=== PATIENT | female | born 1990 | race Caucasian/White ===

== ENCOUNTER 2019-05-11 10:17 | Emergency (ER) | payer MEDICAID, OTHER ==
[~2019-05-11] VITALS: Ht 157.4 cm; Wt 71.3 kg
--- NOTE | 2019-05-11 10:49 | ED Lower Extremity ---
General Chief Complaint: Lower Extremity Stated Complaint: LT BIG TOE INJ Nursing Triage Note: Patient c/o pain, swelling, and bruising in her left great toe. States she was jumping off the top bunk approximately 6-7 feet off the ground missed her footing on the bottom bunk landing and bending her left great toe underneath her foot. States that it was a little sore yesterday but the pain, swelling, and bruising has increased today. Reports taking ibuprofen today and states it hasn't helped with the pain. Nursing Sepsis Screen: No Definite Risk Source: family Exam Limitations: no limitations History of Present Illness Date Seen by Provider: May 11, 2019 Time Seen by Provider: 10:45 Initial Comments The patient is a 29-year-old white female who presents with complaints of pain in her left great toe. She reports that she was in snf yesterday and when she attempted to get down off the top bunk she dropped to the floor and apparently landed on the tip of her left great toe bending it underneath. It hurts somewhat yesterday but much more so today. She reports that it hurts a great deal when she walks. She has no shoes other than flip-flops. Onset: yesterday Pain/Injury Location: left 1st toe Method of Injury: direct blow Allergies and Home Medications Patient Home Medication List Home Medication List Reviewed: Yes Review of Systems Constitutional: see HPI EENTM: no symptoms reported Respiratory: no symptoms reported Cardiovascular: no symptoms reported Gastrointestinal: no symptoms reported Genitourinary: no symptoms reported Musculoskeletal: see HPI Skin: other (chigger bites) Psychiatric/Neurological: No Symptoms Reported Past Ezmlxkm-Bdpfed-Jwwvcg Hx Patient Social History Recent Foreign Travel: No Contact w/Someone Who Travel: No Recent Infectious Disease Expo: No Physical Abuse: No Sexual Abuse: No Mistreated: No Fear: No Past Medical History : No Last Menstrual Period: May 04, 2019 Physical Exam Vital Signs Vital Signs - First Documented 05/11/19 10:27 Temp 36.9 Pulse 90 Resp 16 B/P (MAP) 132/97 (109) Pulse Ox 97 O2 Delivery Room Air Capillary Refill : Less Than 3 Seconds Height, Weight, BMI Height: '" Weight: lbs. oz. kg; 28.00 BMI Method: General Appearance: WD/WN HEENT: normal ENT inspection Neck: full range of motion Cardiovascular: normal peripheral pulses Respiratory: chest non-tender Legs: bilateral leg other (multiple punctate lesions consistent with tick bites over the anterior surface of both shins.) Feet: left foot other Progress/Results/Core Measures Results/Orders My Orders Orders - BUDDY CANALES MD Foot 3 View Left (05/11/19 10:43) Vital Signs/I&O 05/11/19 10:27 Temp 36.9 Pulse 90 Resp 16 B/P (MAP) 132/97 (109) Pulse Ox 97 O2 Delivery Room Air Blood Pressure Mean: 109 Departure Communication (Admissions) 1104 x-rays interpreted by me show no fracture or dislocation. 1120 radiology report confirms Impression Primary Impression: Sprain of metatarsophalangeal joint of left great toe Disposition: HOME, SELF-CARE Condition: Stable/Unchanged Departure-Patient Inst. Decision time for Depature: 11:22 Referrals: NO,LOCAL PHYSICIAN (PCP/Family) Primary Care Physician Add. Discharge Instructions: All discharge instructions reviewed with patient and/or family. Voiced understanding. Elevate foot and ice great toe when possible today. May take ibuprofen 600-800 mg 3 or 4 times daily. Use the podiatric boot for protection BUDDY CANALES MD May 11, 2019 10:49
--- NOTE | 2019-05-11 11:07 | Diagnostic Imaging Report ---
Left foot at 10:31. Indication: Injury to great toe. 3 views were obtained. There are no prior studies available for comparison. There is no fracture, dislocation or acute bony abnormality evident. The Lisfranc joint is well maintained. The soft tissues are unremarkable. There is no sign of a radiopaque foreign body. Impression: There is no evidence for an acute bony abnormality. Dictated by: Dictated on workstation # [id number]
[2019-05-11 11:33] VITALS: BP 132/97
== END 2019-05-11 11:31 | disposition home or self-care (01) ==
LOC: ER FS 10:20
DX: S93.522A Sprain of metatarsophalangeal joint of left great toe, initial encounter (principal); W17.89XA Other fall from one level to another, initial encounter; Y93.39 Activity, other involving climbing, rappelling and jumping off; Y92.149 Unspecified place in prison as the place of occurrence of the external cause
CPT/HCPCS: 73630

== ENCOUNTER 2019-06-27 19:04 | Emergency (ER) | payer MEDICAID ==
[~2019-06-27] VITALS: Ht 161 cm; Wt 71.4 kg
--- NOTE | 2019-06-27 19:22 | ED Abdominal Pain ---
General Stated Complaint: LOW ABD CRAMPING Source of Information: Patient Exam Limitations: No Limitations History of Present Illness Date Seen by Provider: Jun 27, 2019 Time Seen by Provider: 19:02 Initial Comments The patient is a pleasant 29-year-old female who presents for mild lower abdominal cramping as well as a positive test last night. 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 She states that she took a urine. Test at home which appeared to be positive and wanted to come in to have a confirmed. She denies fevers or chills, nausea or vomiting, rectal bleeding or pain, diarrhea, chest pain or shortness of breath, dysuria, hematuria, pelvic pain/bleeding/discharge, back or flank pain. She is smiling and appears comfortable. She believes that her last period was on May 22. She denies any abdominal surgical history. She is alert and oriented 4, calm, and appears to be in no distress. Timing/Duration: 24 Hours Severity/Quality: Mild Location: Suprapubic Radiation: No Radiation Activities at Onset: None Associated Symptoms: Denies Symptoms Allergies and Home Medications Patient Home Medication List Home Medication List Reviewed: Yes Review of Systems Review of Systems Constitutional: no symptoms reported EENTM: No Symptoms Reported Respiratory: No Symptoms Reported Cardiovascular: No Symptoms Reported Gastrointestinal: Abdominal Pain (mild lower abdominal cramping) Genitourinary: No Symptoms Reported Musculoskeletal: no symptoms reported Skin: no symptoms reported Psychiatric/Neurological: No Symptoms Reported Endocrine: No Symptoms Reported Hematologic/Lymphatic: No Symptoms Reported All Other Systems Reviewed Negative Unless Noted: Yes Past Gtjyblx-Lxuiuj-Quwzga Hx Past Med/Social Hx: Reviewed Nursing Past Med/Soc Hx Patient Social History 2nd Hand Smoke Exposure: No Recent Foreign Travel: No Contact w/Someone Who Travel: No Recent Hopitalizations: No Seasonal Allergies Seasonal Allergies: No Past Medical History Surgeries: Yes (Cleft Palate repair, lumpectomy left breast, tympanostomy) Ear Surgery Respiratory: No Cardiac: No Neurological: No Genitourinary: No Gastrointestinal: No Musculoskeletal: No Endocrine: No HEENT: No Cancer: No Psychosocial: No Integumentary: No Blood Disorders: No Physical Exam Vital Signs Vital Signs - First Documented 06/27/19 19:27 Temp 37.0 Pulse 89 Resp 19 B/P (MAP) 142/87 (105) Pulse Ox 99 Capillary Refill : Height/Weight/BMI Height: '" Weight: lbs. oz. kg; 28.00 BMI Method: General Appearance: WD/WN, no apparent distress HEENT: PERRL/EOMI, pharynx normal Neck: non-tender, full range of motion, supple Respiratory: chest non-tender, lungs clear, normal breath sounds, no respiratory distress, no accessory muscle use Cardiovascular: regular rate, rhythm, no edema, no murmur Gastrointestinal: normal bowel sounds, non tender, soft, no organomegaly, no pulsatile mass, other (benign abdominal examination with no focal tenderness, soft, no rigidity, no guarding) Extremities: normal range of motion, non-tender, no pedal edema Back: normal inspection, no CVA tenderness Neurologic/Psychiatric: gastrointestinal technician II-XII nml as tested, no motor/sensory deficits, alert, normal mood/affect Skin: normal color, warm/dry Progress/Results/Core Measures Results/Orders Lab Results Laboratory Tests Test 06/27/19 19:05 06/27/19 19:20 Range/Units Urine Color YELLOW Urine Clarity CLEAR Urine pH 70 5-9 Urine Specific [place] 1.020 1.016-1.022 Urine Protein NEGATIVE NEGATIVE Urine Glucose (UA) NEGATIVE NEGATIVE Urine Ketones NEGATIVE NEGATIVE Urine Nitrite NEGATIVE NEGATIVE Urine Bilirubin NEGATIVE NEGATIVE Urine Urobilinogen 0.2 NORMAL MG/DL Urine Leukocyte Esterase 1+ H NEGATIVE Urine RBC (Auto) 1+ H NEGATIVE Urine RBC 5-10 H /HPF Urine WBC 10-25 H /HPF Urine Squamous Epithelial Cells 10-25 H /HPF Urine Crystals NONE /LPF Urine Bacteria FEW H /HPF Urine Casts NONE /LPF Urine Mucus NEGATIVE /LPF Urine Culture Indicated YES White Blood Count 11.5 H 4.3-11.0 10^3/uL Red Blood Count 4.58 4.35-5.85 10^6/uL Hemoglobin 13.6 11.5-16.0 G/DL Hematocrit 40 35-52 % Mean Corpuscular Volume 87 80-99 FL Mean Corpuscular Hemoglobin 30 25-34 PG Mean Corpuscular Hemoglobin Concent 34 32-36 G/DL Red Cell Distribution Width 13.3 10.0-14.5 % Platelet Count 419 H 130-400 10^3/uL Mean Platelet Volume 8.9 7.4-10.4 FL Neutrophils (%) (Auto) 61 42-75 % Lymphocytes (%) (Auto) 30 12-44 % Monocytes (%) (Auto) 7 0-12 % Eosinophils (%) (Auto) 1 0-10 % Basophils (%) (Auto) 0 0-10 % Neutrophils # (Auto) 7.0 1.8-7.8 X 10^3 Lymphocytes # (Auto) 3.5 1.0-4.0 X 10^3 Monocytes # (Auto) 0.8 0.0-1.0 X 10^3 Eosinophils # (Auto) 0.1 0.0-0.3 10^3/uL Basophils # (Auto) 0.0 0.0-0.1 10^3/uL Sodium Level 139 135-145 MMOL/L Potassium Level 4.0 3.6-5.0 MMOL/L Chloride Level 105 98-107 MMOL/L Carbon Dioxide Level 20 L 21-32 MMOL/L Anion Gap 14 5-14 MMOL/L Blood Urea Nitrogen 10 7-18 MG/DL Creatinine 0.77 0.60-1.30 MG/DL Estimat Glomerular Filtration Rate > 60 BUN/Creatinine Ratio 13 Glucose Level 97 70-105 MG/DL Calcium Level 9.3 8.5-10.1 MG/DL Corrected Calcium 8.5-10.1 MG/DL Total Bilirubin 0.2 0.1-1.0 MG/DL Aspartate Amino Transf (AST/SGOT) 14 5-34 U/L Alanine Aminotransferase (ALT/SGPT) 11 0-55 U/L Alkaline Phosphatase 69 40-136 U/L Total Protein 7.5 6.4-8.2 GM/DL Albumin 4.6 H 3.2-4.5 GM/DL Lipase 27 8-78 U/L Human Chorionic Gonadotropin, Quant 1829 H <5 MIU/ML My Orders Orders - DARIELA MARINO DO Comprehensive Metabolic Panel (06/27/19 19:06) Lipase (06/27/19 19:06) Ua Culture If Indicated (06/27/19 19:06) Ed Iv/Invasive Line Start (06/27/19 19:06) Cbc With Automated Diff (06/27/19 19:06) Urine Bedside (06/27/19 19:06) Hcg,Quantitative (06/27/19 19:13) Urine Culture (06/27/19 19:05) Vital Signs/I&O 06/27/19 19:27 Temp 37.0 Pulse 89 Resp 19 B/P (MAP) 142/87 (105) Pulse Ox 99 Progress Progress Note : Progress Note @2004 - Patient and significant other updated on patient updated on lab results. Patient declined pelvic examination at this time. She appears comfortable and is smiling and stating that she feels much better at this time. Ultrasound is not available however the likelihood of the patient having a serious ectopic at this time is very unlikely. I discussed the case with Dr. Alfonso, CHANNEL ACCOUNT MANAGER, who is happy to follow up with the patient tomorrow. The patient has a urinalysis which appears contaminated but also appears consistent with a UTI so she will go home with a prescription for Macrobid. Patient expresses verbal understanding and agreement with the plan. She is stable for discharge at this time. Advised return to the Emergency Department immediately for vaginal bleeding, worsening pain, new or worsening symptoms. Departure Impression Primary Impression: Cramping affecting , antepartum Additional Impression: Acute UTI Disposition: HOME, SELF-CARE Condition: Stable Departure-Patient Inst. Decision time for Depature: 20:09 Referrals: MELISSA SINHA DO Patient Instructions: Activity During , Ectopic (DC), Urinary Tract Infection, Adult (DC) Add. Discharge Instructions: It is very important that you follow-up with Dr. Sinha in the next 1-2 days as ectopic was not entirely ruled out. Return to the emergency department immediately for new or worsening symptoms such as worsening pain, vaginal bleeding, or other. Drink plenty of fluids. Do not drink alcohol, use illicit substances, or smoke cigarettes. Scripts Nitrofurantoin Monohyd/M-Cryst (Macrobid 100 mg Capsule) 100 Mg Capsule 1 TAB PO BID for acute UTI for 5 Days, #10 CAP Prov: DARIELA MARINO DO 06/27/19 DARIELA MARINO DO Jun 27, 2019 19:22 POS
[2019-06-27 19:24] LABS: CLARITY,URINE CLEAR; COLOR,URINE YELLOW; PH,URINE 70 (5-9)
[2019-06-27 19:25] LABS: BACTERIA,URINE FEW /HPF; BILIRUBIN,URINE NEGATIVE (NEGATIVE); GLUCOSE, URINE (UA) NEGATIVE (NEGATIVE); KETONES,URINE NEGATIVE (NEGATIVE); LEUKOCYTE ESTERASE ,URINE 1+ (NEGATIVE); NITRITE,URINE NEGATIVE (NEGATIVE); PROTEIN,URINE NEGATIVE (NEGATIVE)
[2019-06-27 19:31] LABS: BASOPHILS % (AUTO) 0 % (0-10); EOSINOPHILS # (AUTO) 0.1 10^3/uL (0.0-0.3); EOSINOPHILS % (AUTO) 1 % (0-10); HEMATOCRIT 40 % (35-52); HEMOGLOBIN 13.6 G/DL (11.5-16.0); LYMPHOCYTES # (AUTO) 3.5 X 10^3 (1.0-4.0); LYMPHOCYTES % (AUTO) 30 % (12-44); MEAN CORPUSCULAR HEMOGLOBIN 30 PG (25-34); MEAN CORPUSCULAR HGB CONC 34 G/DL (32-36); MEAN CORPUSCULAR VOLUME 87 FL (80-99); MEAN PLATELET VOLUME 8.9 FL (7.4-10.4); MONOCYTES # (AUTO) 0.8 X 10^3 (0.0-1.0); MONOCYTES % (AUTO) 7 % (0-12); NEUTROPHILS % (AUTO) 61 % (42-75); PLATELET COUNT 419 10^3/uL (130-400); RED CELL DISTRIBUTION WIDTH 13.3 % (10.0-14.5); WHITE BLOOD COUNT 11.5 10^3/uL (4.3-11.0)
[2019-06-27 19:50] LABS: BUN/CREATININE RATIO 13; CALCIUM 9.3 MG/DL (8.5-10.1); CARBON DIOXIDE 20 MMOL/L (21-32); CHLORIDE 105 MMOL/L (98-107); CREATININE SERUM 0.77 MG/DL (0.60-1.30); GFR ESTIMATED > 60; GLUCOSE 97 MG/DL (70-105); SODIUM 139 MMOL/L (135-145)
[2019-06-27 19:51] LABS: ALANINE AMINOTRANSFERASE 11 U/L (0-55); ALBUMIN 4.6 GM/DL (3.2-4.5); ALKALINE PHOSPHATASE 69 U/L (40-136); BILIRUBIN,TOTAL 0.2 MG/DL (0.1-1.0); LIPASE 27 U/L (8-78); TOTAL PROTEIN 7.5 GM/DL (6.4-8.2)
[2019-06-27] MEDS ORDERED: NITR-65 PO (20:13)
[2019-06-27 20:21] VITALS: BP 139/72
== END 2019-06-27 20:21 | disposition home or self-care (01) ==
LOC: EDUNIT# 19:04 → ER FS 19:05
DX: O26.899 Other specified pregnancy related conditions, unspecified trimester (principal); R10.30 Lower abdominal pain, unspecified; O23.40 Unspecified infection of urinary tract in pregnancy, unspecified trimester; Z3A.00 Weeks of gestation of pregnancy not specified
CPT/HCPCS: 36415; 80053; 81000; 83690; 84702; 84703; 85025; 87088

== ENCOUNTER 2019-07-12 16:08 | Emergency (ER) | payer MEDICAID ==
[~2019-07-12] VITALS: Ht 167.7 cm; Wt 71.5 kg
[~2019-07-12 16:08] MED LIST: NITR-65 PO
[2019-07-12] MEDS ORDERED: ACETAMINOPHEN 325 MG TABLET PO ONE (16:30)
--- NOTE | 2019-07-12 16:49 | ED Abdominal Pain ---
General Chief Complaint: Abdominal/GI Problems Stated Complaint: 7 WEEKS PREG UNABLE TO HAVE BM History of Present Illness Date Seen by Provider: Jul 12, 2019 Time Seen by Provider: 16:22 Initial Comments The patient is a 29-year-old female, 7 weeks by ultrasound dating and following with Dr. Sinha for related issues. She presents with concern for inability to have a bowel movement 3 days. She feels very constipated. She has been drinking water and prune juice without relief of symptoms. She denies any other concerns and specifically denies fevers, nausea or vomiting, cough, shortness of breath or chest pain, focal abdominal pain of any kind, flank pain, back pain, dysuria or hematuria, unusual vaginal discharge or bleeding. Allergies and Home Medications Allergies Coded Allergies: No Known Drug Allergies (Unverified , 07/12/19) Home Medications Nitrofurantoin Monohyd/M-Cryst 100 Mg Capsule, 1 TAB PO BID Prescribed by: DARIELA MARINO on 06/27/192012 Patient Home Medication List Home Medication List Reviewed: Yes Review of Systems Review of Systems Constitutional: see HPI All Other Systems Reviewed Negative Unless Noted: Yes (Negative excepted noted.) Past Rxhkqqj-Fhxdvt-Fjappd Hx Past Med/Social Hx: Reviewed Nursing Past Med/Soc Hx Patient Social History 2nd Hand Smoke Exposure: No Recent Foreign Travel: No Contact w/Someone Who Travel: No Recent Hopitalizations: No Seasonal Allergies Seasonal Allergies: No Past Medical History Surgeries: Yes (Cleft Palate repair, lumpectomy left breast, tympanostomy) Ear Surgery Respiratory: No Cardiac: No Neurological: No Genitourinary: No Gastrointestinal: No Musculoskeletal: No Endocrine: No HEENT: No Cancer: No Psychosocial: No Integumentary: No Blood Disorders: No Family Medical History Reviewed Nursing Family Hx Physical Exam Vital Signs Capillary Refill : Height/Weight/BMI Height: '" Weight: lbs. oz. kg; 27.00 BMI Method: General Appearance: no apparent distress Exam Comments This is a younger female appearing nontoxic and in no acute distress. Head is normocephalic and atraumatic. Neck is supple and nontender. Oropharynx is moist. Lungs are clear to auscultation in all stations. There is a normal S1 and S2 without rubs or gallops and capillary refill is appropriate, less than 2 seconds globally. Abdomen is soft, nontender and nondistended. Skin is warm and dry without cyanosis, clubbing or edema. Psychiatrically, the patient demonstrates appropriate mood and affect and is alert. Rectal examination with external rectum without hemorrhoid, fissure, lesions or masses or any other acute abnormality. Internal examination with no lesions or masses palpated at all 4 quadrants of the rectum with a quantity of hard stool palpable approximately 3-4 cm in. Progress/Results/Core Measures Results/Orders My Orders Orders - GERMAN CAPUTO MD Soap Suds Enema (07/12/19 16:23) Acetaminophen Tablet/Caplet (Tylenol T (07/12/19 16:30) Progress Progress Note : Time: 16:47 Progress Note Clinical examination reassuring. 29-year-old female who presents with 3 days of constipation and no other concerns. We discussed options and she would like to try an enema here for rapid relief of symptoms. We'll try a soapsuds enema. We will then reevaluate. If the patient is able to achieve some relief, plan will be for discharge home with a bowel regimen to follow up very closely in the office with her cocoa mill operator. She understands and agrees. Update 1710: Patient has had a large bowel movement after soapsuds enema and has had relief of symptoms. She feels ready to go home. We will proceed with discharge at this time. We will prescribe 2 days of lactulose which is safe in per Uptodate and Lexicomp review as well as twice a day MiraLAX. The patient is to follow up as noted with her cocoa mill operator in the next few days and understands that if she feels worse is that of better or develops other new symptoms of concern that she return immediately for reevaluation. All questions are answered. Departure Impression Primary Impression: Constipation Qualified Codes: K59.09 - Other constipation Disposition: 01 HOME, SELF-CARE Condition: Improved Departure-Patient Inst. Referrals: MELISSA SINHA DO Patient Instructions: Constipation in Adults Add. Discharge Instructions: Follow-up with Dr. Sinha as discussed in the next few days. Use the medicines as prescribed to help stay regular and move your bowels. Return to the emergency department right away with recurrent or worsening symptoms or with any other new symptoms of concern. Scripts Polyethylene Glycol 3350 (Miralax) 17 Gm Powd.pack 17 GM PO BID for 14 Days, #527 GM Prov: GERMAN CAPUTO MD 07/12/19 Lactulose (Lactulose) 10 Gm Packet 10 GM PO DAILY for 2 Days, #2 PACKET Prov: GERMAN CAPUTO MD 07/12/19 GERMAN CAPUTO MD Jul 12, 2019 16:49 POS
--- NOTE | 2019-07-12 17:00 | NUR ---
Soapsud enema administered at this time with small amount of results. Another 200ml was administered with a large amount of hard stool noted in the commode.
[2019-07-12] MEDS ORDERED: LACT10PA3 PO (17:13)
[2019-07-12] MEDS ORDERED: POLY17PO6 PO (17:13)
[2019-07-12 17:29] VITALS: BP 147/75
== END 2019-07-12 17:29 | disposition home or self-care (01) ==
LOC: EDUNIT# 16:08 → ER FS 16:09
DX: O99.611 Diseases of the digestive system complicating pregnancy, first trimester (principal); K59.00 Constipation, unspecified; Z3A.01 Less than 8 weeks gestation of pregnancy
CPT/HCPCS: 99284

== ENCOUNTER 2019-09-19 12:46 | Emergency (ER) | payer MEDICAID ==
[~2019-09-19] VITALS: Ht 154 cm; Wt 68.9 kg
[~2019-09-19 12:46] MED LIST changes: +LACT10PA3 PO; +POLY17PO6 PO
[2019-09-19 13:10] LABS: CLARITY,URINE CLEAR; COLOR,URINE YELLOW
[2019-09-19 13:11] LABS: BACTERIA,URINE LARGE /HPF; BILIRUBIN,URINE NEGATIVE (NEGATIVE); GLUCOSE, URINE (UA) NEGATIVE (NEGATIVE); KETONES,URINE TRACE (NEGATIVE); LEUKOCYTE ESTERASE ,URINE NEGATIVE (NEGATIVE); NITRITE,URINE NEGATIVE (NEGATIVE); PROTEIN,URINE NEGATIVE (NEGATIVE); RBC,URINE 0-2 /HPF; WBC,URINE RARE /HPF
--- NOTE | 2019-09-19 13:28 | ED GU-Female ---
General Chief Complaint: Abdominal/GI Problems Stated Complaint: ABD PAIN Nursing Triage Note: Is 17 weeks and is having left sided cramping and pressure. Had normal BM this morning. Reports she is currently being treated for trich with macrobid. Nursing Sepsis Screen: No Definite Risk Source: patient History of Present Illness Date Seen by Provider: Sep 19, 2019 Time Seen by Provider: 12:52 Initial Comments 29-year-old female that is SAB3 that is approximately 17 weeks and has an estimated delivery date is February 24, 2020 and is approximately 17 weeks . She is complaining of left-sided cramping and pelvic pressure. She denies any vaginal bleeding or discharge. She states that she did have a bowel movement was normal this morning. She is currently still taking antibiotics for UTI diagnosed just before when she went to an urgent care in [place]. They also have treated her with antibiotics for Tri chomonas. She denies having any vaginal discharge or bleeding currently. She does have some discomfort with urination still. Allergies and Home Medications Allergies Coded Allergies: amoxicillin (Verified Allergy, Unknown, 09/19/19) cefaclor (Verified Allergy, Unknown, 09/19/19) Home Medications Lactulose 10 Gm Packet, 10 GM PO DAILY Prescribed by: GERMAN CAPUTO on 07/12/191712 Nitrofurantoin Monohyd/M-Cryst 100 Mg Capsule, 1 TAB PO BID Prescribed by: DARIELA MARINO on 06/27/192012 Polyethylene Glycol 3350 17 Gm Powd.pack, 17 GM PO BID Prescribed by: GERMAN CAPUTO on 07/12/191712 Patient Home Medication List Home Medication List Reviewed: Yes Review of Systems Review of Systems Constitutional: No chills, No fever; malaise EENTM: no symptoms reported Respiratory: no symptoms reported Cardiovascular: no symptoms reported Gastrointestinal: no symptoms reported; No nausea, No vomiting Genitourinary: denies discharge; dysuria, pain, other (pelvic pain worse on the left side) Musculoskeletal: no symptoms reported Skin: no symptoms reported Psychiatric/Neurological: Anxiety (worried about miscarriage since she has had 3 previous miscarriages and this is the furthest she has carried a ) Past Ebgxrdb-Xjosak-Pylfyb Hx Past Med/Social Hx: Reviewed Nursing Past Med/Soc Hx Patient Social History Alcohol Use: Denies Use Recreational Drug Use: No Smoking Status: Current Everyday Smoker 2nd Hand Smoke Exposure: No Recent Foreign Travel: No Contact w/Someone Who Travel: No Recent Infectious Disease Expo: No Recent Hopitalizations: No Physical Abuse: No Sexual Abuse: No Mistreated: No Fear: No Seasonal Allergies Seasonal Allergies: No Past Medical History Surgeries: Yes (Cleft Palate repair, lumpectomy left breast, tympanostomy) Ear Surgery Respiratory: No Cardiac: No Neurological: No Genitourinary: No Gastrointestinal: No Musculoskeletal: No Endocrine: No HEENT: No Cancer: No Psychosocial: No Integumentary: No Blood Disorders: No Physical Exam Vital Signs Vital Signs - First Documented 09/19/19 13:00 Temp 37.2 Pulse 94 Resp 16 B/P (MAP) 123/56 (78) Pulse Ox 98 Capillary Refill : Less Than 3 Seconds Height, Weight, BMI Height: '" Weight: lbs. oz. kg; 29.00 BMI Method: General Appearance: WD/WN, moderate distress (complaining of pain to LLQ and is holding her LLQ) HEENT: PERRL/EOMI Cardiovascular: normal peripheral pulses, regular rate, rhythm Respiratory: chest non-tender, lungs clear, normal breath sounds, no respiratory distress, no accessory muscle use Gastrointestinal: normal bowel sounds, soft, no pulsatile mass, tenderness (LLQ and suprapubic with a gravid uterus) Neurologic/Psychiatric: alert Skin: normal color, warm/dry Progress/Results/Core Measures Suspected Sepsis Recent Fever Within 48 Hours: No Infection Criteria Present: Documented Infection New/Unexplained Altered Menta: No Sepsis Screen: No Definite Risk SIRS Temperature: Pulse: 94 Respiratory Rate: 16 Blood Pressure 123 /56 Mean: 78 Results/Orders Lab Results Laboratory Tests Test 09/19/19 12:47 Range/Units Urine Color YELLOW Urine Clarity CLEAR Urine pH 7.0 5-9 Urine Specific [place] 1.015 L 1.016-1.022 Urine Protein NEGATIVE NEGATIVE Urine Glucose (UA) NEGATIVE NEGATIVE Urine Ketones TRACE H NEGATIVE Urine Nitrite NEGATIVE NEGATIVE Urine Bilirubin NEGATIVE NEGATIVE Urine Urobilinogen 0.2 < = 1.0 MG/DL Urine Leukocyte Esterase NEGATIVE NEGATIVE Urine RBC (Auto) 1+ H NEGATIVE Urine RBC 0-2 /HPF Urine WBC RARE /HPF Urine Squamous Epithelial Cells 2-5 /HPF Urine Crystals NONE /LPF Urine Bacteria LARGE H /HPF Urine Casts NONE /LPF Urine Mucus NONE /LPF Urine Culture Indicated YES My Orders Orders - KRISTEN GODOY MD Ua Culture If Indicated (09/19/19 12:48) Urine Culture (09/19/19 12:47) Vital Signs/I&O 09/19/19 09/19/19 13:00 13:33 Temp 37.2 Pulse 94 86 Resp 16 16 B/P (MAP) 123/56 (78) 121/71 Pulse Ox 98 99 Capillary Refill : Less Than 3 Seconds Blood Pressure Mean: 78 Progress Note : Progress Note UA shows bacteria with a few white blood cells however was negative leukocyte esterase and negative nitrites. She did have trace ketones. heart tones were in the 150s. [address] Sinha and he requested to have the patient come see him directly in the clinic as he was seeing patients currently. Departure Impression Primary Impression: Pelvic pain affecting in second trimester, antepartum Additional Impression: Bacteriuria during in second trimester Disposition: 01 HOME, SELF-CARE Condition: Stable Departure-Patient Inst. Decision time for Depature: 13:26 Referrals: NO,LOCAL PHYSICIAN (PCP) Primary Care Physician MELISSA SINHA DO Patient Instructions: Stomach Pain in Early Add. Discharge Instructions: The heart tones were in 150s here. Urine showed bacteria on testing. Go to Dr. Sinha clinic and be seen directly from ER. All discharge instructions reviewed with patient and/or family. Voiced understanding. KRISTEN GODOY MD Sep 19, 2019 13:28
[2019-09-19 13:33] VITALS: BP 121/71
== END 2019-09-19 13:32 | disposition home or self-care (01) ==
LOC: EDUNIT# 12:46 → ER FS 12:47
DX: O26.892 Other specified pregnancy related conditions, second trimester (principal); R10.2 Pelvic and perineal pain; R82.71 Bacteriuria; O99.332 Smoking (tobacco) complicating pregnancy, second trimester; F17.200 Nicotine dependence, unspecified, uncomplicated; Z3A.17 17 weeks gestation of pregnancy; Z88.0 Allergy status to penicillin; Z88.1 Allergy status to other antibiotic agents
CPT/HCPCS: 81000; 87088

== ENCOUNTER 2019-11-04 12:17 | Emergency (ER) | payer OTHER, MEDICAID ==
[~2019-11-04] VITALS: Ht 160.2 cm; Wt 68.7 kg
--- NOTE | 2019-11-04 12:19 | ED General ---
General Stated Complaint: CRAMPING SPOTTING 23 WKS PREG Source of Information: Patient History of Present Illness Date Seen by Provider: Nov 04, 2019 Time Seen by Provider: 12:19 Initial Comments Patient is a 29-year-old female who comes to the emergency department complaining of some spotting of blood and pelvic cramps. The patient is currently incarcerated. She is followed by Dr. Sinha locally and reports an uncomfortable get a to this point. She is around 23 weeks gestation. She does have prior history of 3 spontaneous abortions. Today, she complains of some pelvic cramping that started earlier today. She had some spotting of blood apparently when she use the restroom. She did not have any loss of fluid or a christal amount of blood from her vagina. She has not had a fever lately. She has been incarcerated for one week and does endorse sexual activity prior to that with a regular partner. No nausea or vomiting. Allergies and Home Medications Allergies Coded Allergies: amoxicillin (Verified Allergy, Unknown, 09/19/19) cefaclor (Verified Allergy, Unknown, 09/19/19) Home Medications Lactulose 10 Gm Packet, 10 GM PO DAILY Prescribed by: GERMAN CAPUTO on 07/12/191712 Nitrofurantoin Monohyd/M-Cryst 100 Mg Capsule, 1 TAB PO BID Prescribed by: DARIELA MARINO on 06/27/192012 Polyethylene Glycol 3350 17 Gm Powd.pack, 17 GM PO BID Prescribed by: GERMAN CAPUTO on 07/12/19 171 Patient Home Medication List Home Medication List Reviewed: Yes Review of Systems Review of Systems Constitutional: no symptoms reported EENTM: no symptoms reported Respiratory: no symptoms reported Cardiovascular: no symptoms reported Gastrointestinal: no symptoms reported Genitourinary: see HPI Musculoskeletal: no symptoms reported Skin: no symptoms reported All Other Systems Reviewed Negative Unless Noted: Yes Physical Exam Vital Signs Capillary Refill : Height, Weight, BMI Height: '" Weight: lbs. oz. kg; BMI Method: General Appearance: No Apparent Distress, WD/WN Neck: Full Range of Motion, Supple Respiratory: Lungs Clear Cardiovascular: Regular Rate, Rhythm, No Murmur Gastrointestinal: Non Tender, Soft Genital/Rectal: Other (normal female external genitalia. Vaginal mucosa is mildly inflamed and with some white adherent clumpy discharge. Cervical os is closed and no bleeding is present but there is some yellow discharge emanating from the cervical os. No significant cervical motion tenderness or adnexal tenderness) Extremity: Normal Capillary Refill, Normal Range of Motion Neurologic/Psychiatric: Alert, Oriented x3 Progress/Results/Core Measures Suspected Sepsis SIRS Temperature: Pulse: Respiratory Rate: Blood Pressure / Mean: Results/Orders Lab Results Laboratory Tests Test 11/04/19 13:10 11/04/19 14:27 11/04/19 14:30 Range/Units Human Chorionic Gonadotropin, Quant 21456 H <5 MIU/ML Urine Color YELLOW Urine Clarity CLEAR Urine pH 6.0 5-9 Urine Specific [place] 1.020 1.016-1.022 Urine Protein NEGATIVE NEGATIVE Urine Glucose (UA) NEGATIVE NEGATIVE Urine Ketones 2+ H NEGATIVE Urine Nitrite NEGATIVE NEGATIVE Urine Bilirubin NEGATIVE NEGATIVE Urine Urobilinogen 0.2 < = 1.0 MG/DL Urine Leukocyte Esterase NEGATIVE NEGATIVE Urine RBC (Auto) NEGATIVE NEGATIVE Urine RBC NONE /HPF Urine WBC NONE /HPF Urine Squamous Epithelial Cells 5-10 /HPF Urine Crystals NONE /LPF Urine Bacteria FE /HPF Urine Casts NONE /LPF Urine Mucus SMALL H /LPF Urine Culture Indicated NO Micro Results Microbiology 11/04/19 Wet Prep - Final, Complete My Orders Orders - ASHLEY RESTREPO DO Ed Iv/Invasive Line Start (11/04/19 12:40) Ns Iv 1000 Ml (Sodium Chloride 0.9%) (11/04/19 12:45) Hcg,Quantitative (11/04/19 12:40) Abo Rh Type (11/04/19 12:40) Morphine Injection (Morphine Injection (11/04/19 12:40) Vaginal Exam (11/04/19 12:58) Chlam Dna Probe (11/04/19 12:58) Neisseria Gonorrhea Swab (11/04/19 12:58) Wet Prep (11/04/19 12:58) Urinalysis (11/04/19 14:13) Morphine Injection (Morphine Injection (11/04/19 14:54) Azithromycin Tablet (Zithromax Tablet) (11/04/19 15:00) Fluconazole Tablet (Diflucan Tablet) (11/04/19 15:15) Fluconazole Tablet (Ed Only) (Diflucan T (11/04/19 15:07) Vital Signs/I&O Capillary Refill : Progress Note : Time: 15:15 Progress Note Patient is seen and examined on arrival to her room. Pelvic examination is completed and is accompanied by female registered nurse. Quantitative hCG and type and screen are ordered. 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 Sinha, who recommended proceeding with pelvic exam to evaluate for blood. He is very familiar with the patient. ED Summary: Patient is seen in the emergency department as documented above. Pelvic exam is suspicious for cervicitis. There was no bleeding seen and no dilatation of the cervical os. She did not have significant cervical motion tenderness or adnexal tenderness. During the ED course, the patient was given some morphine for pain. Quantitative hCG was completed and seems appropriate. Bedside ultrasound was completed and revealing for a very active intrauterine fetus with heart tones in the 140s. Gonorrhea and chlamydia are collected and sent to lab patient is empirically treated today. She does have allergy to penicillin and cephalosporin so she is given 2 g of azithromycin in lieu of cephalosporin. Urinalysis today did not appear acutely infected but patient is already taking antibiotics for this and I encouraged her to continue. Return precautions were discussed and she was advised to follow-up with Dr. SINHA at her earliest convenience or come back to the emergency department. Lastly, the patient had clumpy white discharge adherent to the vaginal jauregui on physical exam and she was given a Diflucan in the ER despite that her wet prep did not reveal [place]. She was treated clini randa. No prescriptions were recommended for home use. I did encourage her to use Tylenol as needed for discomfort. Departure Impression Primary Impression: Pelvic cramping Disposition: HOME, SELF-CARE Condition: Improved ASHLEY RESTREPO DO Nov 04, 2019 12:19
[2019-11-04] MEDS ORDERED: morphine INJ 10 MG/ML 1ML (SYR OR VIAL) IVP STA ×2 (12:40→14:54)
[2019-11-04] MEDS ORDERED: NS IV 1000 ML 1,000 ML IV SCH (12:45)
[2019-11-04 14:46] LABS: BILIRUBIN,URINE NEGATIVE (NEGATIVE); CLARITY,URINE CLEAR; COLOR,URINE YELLOW; GLUCOSE, URINE (UA) NEGATIVE (NEGATIVE); KETONES,URINE 2+ (NEGATIVE); LEUKOCYTE ESTERASE ,URINE NEGATIVE (NEGATIVE); NITRITE,URINE NEGATIVE (NEGATIVE); PROTEIN,URINE NEGATIVE (NEGATIVE)
[2019-11-04] MEDS ORDERED: AZITHROMYCIN 250 MG TAB (ZITHROMAX) PO ONE (15:00)
[2019-11-04] MEDS ORDERED: FLUCONAZOLE 150 MG TABLET (ED ONLY) ONE (15:07)
[2019-11-04] MEDS ORDERED: fluCOnazole (DIFLUCAN) 100 MG TAB PO ONE (15:15)
[2019-11-04 15:29] VITALS: BP 127/87
--- OUTSIDE RECORDS SUMMARY | 2019-11-08 00:38 | XMS REPORT | Continuity of Care Document ---
Author Organization Unknown Address Unknown Phone Unavailable Allergies Active Description Code Type Severity Reaction Onset Reported/Identified Relationship to Patient Clinical Status Yes No Known Drug Allergies [id number] Drug Allergy Unknown N/A 07/12/2019 Yes amoxicillin [id number] Drug Aller gy Unknown N/A 09/19/2019 Yes cefaclor [id number] Drug Allergy Unknown N/A 09/19/2019 Medications There is no data. Problems Date Dx Coded Attending Type Code Diagnosis Diagnosed By 05/11/2019 BUDDY CANALES MD Ot M79.675 PAIN IN LEFT TOE(S) 05/11/2019 BUDDY CANALES MD Ot S93.522A SPRAIN OF METATARSOPHALANGEAL JOINT OF L 05/11/2019 BUDDY CANALES MD Ot W17.89XA OTHER FALL FROM ONE LEVEL TO ANOTHER, IN 05/11/2019 BUDDY CANALES MD Ot Y92.[address] IN SN[facility] PLACE 05/11/2019 BUDDY CANALES MD Ot Y93.39 ACTIVITY, OTH INVOLVING CLIMBING, RAPPEL 05/15/2019 BUDDY CANALES MD Ot M79.675 PAIN IN LEFT TOE(S) 05/15/2019 BUDDY CANALES MD Ot S93.522A SPRAIN OF METATARSOPHALANGEAL JOINT OF L 05/15/2019 BUDDY CANALES MD Ot W17.89XA OTHER FALL FROM ONE LEVEL TO ANOTHER, IN 05/15/2019 BUDDY CANALES MD Ot Y92.[address] IN SNF PLACE 05/15/2019 BUDDY CANALES MD Ot Y93.39 ACTIVITY, OTH INVOLVING CLIMBING, RAPPEL 06/27/2019 NED LYLE DO Ot O23. 40 UNSP INFECTION OF URINARY TRACT IN PREGN 06/27/2019 NED LYLE DO Ot O26.899 OTH RELATED CONDITIONS, UNSPEC 06/27/2019 NED LYLE DO Ot R10. 30 LOWER ABDOMINAL PAIN, UNSPECIFIED 06/27/2019 DARIELA RUIZ NED Piper Ot Z3A. 00 WEEKS OF GESTATION OF NOT SPEC 07/12/2019 HARSHAL HILLIARD, GERMAN Kaba Ot K59. 00 CONSTIPATION, UNSPECIFIED 07/12/2019 HARSHAL HILLIARD, GERMAN Kaba Ot O99.611 DISEASES OF THE DGSTV SYS COMP 07/12/2019 GERMAN CAPUTO MD Ot Z3A. 01 LESS THAN 8 WEEKS GESTATION OF 07/14/2019 GERMAN CAPUTO MD Ot K59. 00 CONSTIPATION, UNSPECIFIED 07/14/2019 HARSHAL HILLIARD, GERMAN Kaba Ot O99.611 DISEASES OF THE DGSTV SYS COMP 07/14/2019 GERMAN CAPUTO MD Ot Z3A. 01 LESS THAN 8 WEEKS GESTATION OF 09/19/2019 KRISTEN GODOY MD Ot F17.2 00 NICOTINE DEPENDENCE, UNSPECIFIED, UNCOMP 09/19/2019 KRISTEN GODOY MD Ot O26.8 92 OTH RELATED CONDITIONS, SECOND 09/19/2019 KRISTEN GODOY MD Ot O99.3 32 SMOKING (TOBACCO) COMPLICATING 09/19/2019 KRISTNE GODOY MD Ot R10.2 PELVIC AND PERINEAL PAIN 09/19/2019 KRISTEN GODOY MD Ot R82.7 1 BACTERIURIA 09/19/2019 KRISTEN GODOY MD Ot Z3A.1 7 17 WEEKS GESTATION OF 09/19/2019 KRISTEN GODOY MD Ot Z88.0 ALLERGY STATUS TO PENICILLIN 09/19/2019 KRISTEN GODOY MD Ot Z88.1 ALLERGY STATUS TO OTHER ANTIBIOTIC AGENT 09/21/2019 KRISTEN GODOY MD Ot F17.2 00 NICOTINE DEPENDENCE, UNSPECIFIED, UNCOMP 09/21/2019 KRISTEN GODOY MD E Ot O26.8 92 OTH RELATED CONDITIONS, SECOND 09/21/2019 KRISTEN GODOY MD Ot O99.3 32 SMOKING (TOBACCO) COMPLICATING 09/21/2019 KRISTEN GODOY MD Ot R10.2 PELVIC AND PERINEAL PAIN 09/21/2019 KRISTEN GODOY MD E Ot R82.7 1 BACTERIURIA 09/21/2019 KRISTEN GODOY MD E Ot Z3A.1 7 17 WEEKS GESTATION OF 09/21/2019 KRISTEN GODOY MD, Ot Z88.0 ALLERGY STATUS TO PENICILLIN 09/21/2019 KRISTEN GODOY MD, Ot Z88.1 ALLERGY STATUS TO OTHER ANTIBIOTIC AGENT Procedures There is no data. Results Test Result Range Complete urinalysis with reflex to cultu re - 06/27/19 19:05 Urine color determination YELLOW NRG Urine clarity determination CLEAR NR G Urine pH measurement by test strip 70 5-9 Specific gravity of urine by test strip 1.020 1.016-1.022 Urine protein assay by test strip, semi-quantitative NEGATIVE NEGATIVE Urine glucose detection by automated test strip NE GATIVE NEGATIVE Erythrocytes detection in urine sediment by light micr oscopy 1+ NEGATIVE Urine ketones detection by automated test strip NE GATIVE NEGATIVE Urine nitrite detection by test strip NEGATIVE NEGATIVE Urine total bilirubin detection by test strip NEGA TIVE NEGATIVE Urine urobilinogen measurement by automated test strip (mass/volume) 0.2 mg/dL NORMAL Urine leukocyte esterase detection by dipstick 1+ NEGATIVE Automated urine sediment erythrocyte cou nt by microscopy (number/high power field) [HPF] NRG Automated urine sediment leukocyte count by microscopy (number/high power field) [HPF] NRG Bacteria detection in urine sediment by light microsco py FEW NRG Squamous epithelial cells detection in u rine sediment by light microscopy 10-25 NRG Crystals detection in urine sediment by light microsco py NONE NRG Casts detection in urine sediment by light microscopy NONE NRG Mucus detection in urine sediment by light microscopy NEGATIVE NRG Complete urinalysis with reflex to culture YES NRG Bacterial urine culture - 06/27/19 19:05 Bacterial urine culture NG NRG Complete blood count (CBC) with automate d white blood cell (WBC) differential - 06/27/19 19:20 Blood leukocytes automated count (number/volume) 11.5 10*3/uL 4.3-11.0 Blood erythrocytes automated count (number/volume) 4.58 10*6/uL 4.35-5.85 Venous blood hemoglobin measurement (mass/volume) 13.6 g/dL 11.5-16.0 Blood hematocrit (volume fraction) 40 % 35-52 Automated erythrocyte mean corpuscular volume 87 [ foz_us] 80-99 Automated erythrocyte mean corpuscular h emoglobin (mass per erythrocyte) 30 pg 25-34 Automated erythrocyte mean corpuscular h emoglobin concentration measurement (mass/volume) 34 g/dL 32-36 Automated erythrocyte distribution width ratio 13. 3 % 10.0- 14.5 Automated blood platelet count (count/volume) 419 10*3/uL 130-400 Automated blood platelet mean volume measurement 8.9 [foz_us] 7.4-10.4 Automated blood neutrophils/100 leukocytes 61 % 42-75 Automated blood lymphocytes/100 leukocytes 30 % 12-44 Blood monocytes/100 leukocytes 7 % 0-12 Automated blood eosinophils/100 leukocytes 1 % 0-10 Automated blood basophils/100 leukocytes 0 % 0-10 Blood neutrophils automated count (number/volume) 7.0 10*3 1.8-7.8 Blood lymphocytes automated count (number/volume) 3.5 10*3 1.0-4.0 Blood monocytes automated count (number/volume) 0. 8 10*3 0.0-1.0 Automated eosinophil count 0.1 10*3/uL 0 .0-0.3 Automated blood basophil count (count/volume) 0.0 10*3/uL 0.0-0.1 Comprehensive metabolic panel - 06/27/19 19:20 Serum or plasma sodium measurement (moles/volume) 139 mmol/L 135-145 Serum or plasma potassium measurement (moles/volume) 4.0 mmol/L 3.6-5.0 Serum or plasma chloride measurement (moles/volume) 105 mmol/L 98-107 Carbon dioxide 20 mmol/L 21-32 Serum or plasma anion gap determination (moles/volume) 14 mmol/L 5-14 Serum or plasma urea nitrogen measurement (mass/volume ) 10 mg/dL 7-18 Serum or plasma creatinine measurement (mass/volume) 0.77 mg/dL 0.60-1.30 Serum or plasma urea nitrogen/creatinine mass ratio 13 NRG Serum or plasma creatinine measurement w ith calculation of estimated glomerular filtration rate > NRG Serum or plasma glucose measurement (mass/volume) 97 mg/dL 70-105 Serum or plasma calcium measurement (mass/volume) 9.3 mg/dL 8.5-10.1 Serum or plasma total bilirubin measurement (mass/volu me) 0.2 mg/dL 0.1-1.0 Serum or plasma alkaline phosphatase rashard surement (enzymatic activity/volume) 69 U/L 40-136 Serum or plasma aspartate aminotransfera se measurement (enzymatic activity/volume) 14 U/L 5-34 Serum or plasma alanine aminotransferase measurement (enzymatic activity/volume) 11 U/L 0-55 Serum or plasma protein measurement (mass/volume) 7.5 g/dL 6.4-8.2 Serum or plasma albumin measurement (mass/volume) 4.6 g/dL 3.2-4.5 Lipase - 06/27/19 19:20 Lipase 27 U/L 8-78 Serum or plasma choriogonadotropin measu rement (units/volume) - 06/27/19 19:20 Serum or plasma choriogonadotropin measurement (units/ volume) 1829 m[iU]/mL <5 GC/CHLAMYDIA (SWAB OR URINE)-RAPID - 14:34 CHLAMYDIA TRACHOMATIS RNA, TMA NOT DETECTED NOT DETECTED NEISSERIA GONORRHOEAE RNA, TMA NOT DETECTED NOT DETECTED COMMENT NRG SUREPATH PAP RFX HPV mRNA E6/E7 - 14:34 CLINICAL INFORMATION: NRG LMP: NRG PREV. PAP: NRG PREV. 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 COMMENT NRG BLOOD TPYE/RH FACTOR - 06/29/19 15:29 ABO GROUP O NRG RH TYPE RH(D) POSITIVE NRG ANTIBODY SCREEN - 06/29/19 15:29 ANTIBODY SCREEN, RBC W/REFL ID, TITER AND AG NO ANTIBODIES DETECTED NRG SYPHILIS (RPR W/ REFLEX CONFIRMATION) - 06/29/19 15:29 RPR (DX) W/REFL TITER AND CONFIRMATORY TESTING NON-REACTIVE NON-REACTIVE HEP B SURFACE ANTIGEN - 06/29/19 15:29 HEPATITIS B SURFACE ANTIGEN NON-REACTIVE NON-REACTIVE RUBELLA IMMUNE STATUS - 06/29/19 15:29 RUBELLA ANTIBODY (IGG) 1.25 index NRG Complete urinalysis with reflex to cultu re - 09/19/19 12:47 Urine color determination YELLOW NRG Urine clarity determination CLEAR NR G Urine pH measurement by test strip 7.0 5-9 Specific gravity of urine by test strip 1.015 1.016-1.022 Urine protein assay by test strip, semi-quantitative NEGATIVE NEGATIVE Urine glucose detection by automated test strip NE GATIVE NEGATIVE Erythrocytes detection in urine sediment by light micr oscopy 1+ NEGATIVE Urine ketones detection by automated test strip TR CALIN NEGATIVE Urine nitrite detection by test strip NEGATIVE NEGATIVE Urine total bilirubin detection by test strip NEGA TIVE NEGATIVE Urine urobilinogen measurement by automated test strip (mass/volume) 0.2 mg/dL < = 1.0 Urine leukocyte esterase detection by dipstick NEG ATIVE NEGATIVE Automated urine sediment erythrocyte cou nt by microscopy (number/high power field) [HPF] NRG Automated urine sediment leukocyte count by microscopy (number/high power field) RARE NRG Bacteria detection in urine sediment by light microsco py LARGE NRG Squamous epithelial cells detection in u rine sediment by light microscopy 2-5 NRG Crystals detection in urine sediment by light microsco py NONE NRG Casts detection in urine sediment by light microscopy NONE NRG Mucus detection in urine sediment by light microscopy NONE NRG Complete urinalysis with reflex to culture YES NRG Bacterial urine culture - 09/19/19 12:47 Bacterial urine culture 3 OR MORE NRG COLONY COUNT 30,000 CFU/ML NRG FTX;REPORTABLE GRAM POSITIVES, SUGGESTING PROBABLE NRG FREE TEXT ENTRY 2 COLLECTION CONTAMINATION WITH SK IN NRG FREE TEXT ENTRY 3 ARSEN. NO SUSCEPTIBILITY PERFORM ED. NRG GC/CHLAMYDIA (SWAB OR URINE)-RAPID - 11:11 CHLAMYDIA TRACHOMATIS RNA, TMA NOT DETECTED NOT DETECTED NEISSERIA GONORRHOEAE RNA, TMA NOT DETECTED NOT DETECTED COMMENT NRG CULTURE, URINE - 10/26/19 11:11 CULTURE, URINE, ROUTINE SEE NOTE NRG Serum or plasma choriogonadotropin measu rement (units/volume) - 11/04/19 13:10 Serum or plasma choriogonadotropin measurement (units/ volume) 62030 m[iU]/mL <5 ABO+Rh group - 11/04/19 13:10 WRISTBAND NUMBER TNP NRG ABO+Rh group OP NRG Microscopic examination by wet preparati on - 11/04/19 14:27 WET PREP RESULTS NO CLUE CELLS OBSERVED NRG Chlamydia trachomatis DNA detection by p robe and signal amplification method - 11/04/19 14:27 Chlamydia trachomatis DNA detection by p robe and target amplification method Not Detected Not Detected Neisseria gonorrhoeae DNA detection by p robe and signal amplification method - 11/04/19 14:27 Gonorrhea amp DNA-urine Not Detected No t Detected Complete urinalysis with reflex to cultu re - 11/04/19 14:30 Urine color determination YELLOW NRG Urine clarity determination CLEAR NR G Urine pH measurement by test strip 6.0 5-9 Specific gravity of urine by test strip 1.020 1.016-1.022 Urine protein assay by test strip, semi-quantitative NEGATIVE NEGATIVE Urine glucose detection by automated test strip NE GATIVE NEGATIVE Erythrocytes detection in urine sediment by light micr oscopy NEGATIVE NEGATIVE Urine ketones detection by automated test strip 2+ NEGATIVE Urine nitrite detection by test strip NEGATIVE NEGATIVE Urine total bilirubin detection by test strip NEGA TIVE NEGATIVE Urine urobilinogen measurement by automated test strip (mass/volume) 0.2 mg/dL < = 1.0 Urine leukocyte esterase detection by dipstick NEG ATIVE NEGATIVE Automated urine sediment erythrocyte cou nt by microscopy (number/high power field) NONE NRG Automated urine sediment leukocyte count by microscopy (number/high power field) NONE NRG Bacteria detection in urine sediment by light microsco py FE NRG Squamous epithelial cells detection in u rine sediment by light microscopy 5-10 NRG Crystals detection in urine sediment by light microsco py NONE NRG Casts detection in urine sediment by light microscopy NONE NRG Mucus detection in urine sediment by light microscopy SMALL NRG Complete urinalysis with reflex to culture NO NRG Encounters ACCT No. Visit Date/Time Discharge Status Pt. Type Provider Facility Loc./Unit Complaint [id number] 06/29/2019 14:15:00 06/29/2019 23:59: 59 [facility] Outpatient [facility] [id number] 10/26/2019 10:30:00 Document Registration [id number] 06/29/2019 14:15:00 Document Registration [id number] 11/04/2019 12:19:00 15:29:00 DIS Emergency ASHLEY RESTREPO DO [facility] ER FS CRAMPING SPOTTING 23 WK S PREG [id number] 09/19/2019 12:47:00 020 13:32:00 DIS Emergency KRISTEN GODOY MD [facility] ER FS ABD PAIN [id number] 07/12/2019 16:09:00 17:29:00 DIS Emergency GERMAN CAPUTO MD [facility] ER FS 7 WEEKS PREG UNABLE TO HAVE BM [id number] 06/27/2019 19:05:00 10/29/2 019 20:21:00 DIS Emergency NDE LYLE DO [facility] ER FS LOW ABD CRAMPING [id number] 05/11/2019 10:20:00 019 11:31:00 DIS Emergency PARKER HILLIARD, BUDDY Ward [facility] ER FS LT BIG TOE INJ
== END 2019-11-04 15:29 | disposition home or self-care (01) ==
LOC: EDUNIT# 12:17 → ER FS 12:19
DX: O26.892 Other specified pregnancy related conditions, second trimester (principal); R10.2 Pelvic and perineal pain; Z3A.23 23 weeks gestation of pregnancy; Z88.0 Allergy status to penicillin; Z88.1 Allergy status to other antibiotic agents
CPT/HCPCS: 36415; 81000; 84702; 86900; 86901; 87210; 87491; 87591

== ENCOUNTER 2019-11-13 13:15 | Emergency (ER) | payer MEDICAID, OTHER ==
--- OUTSIDE RECORDS SUMMARY | 2019-11-13 16:02 | XMS REPORT | Continuity of Care Document ---
Author Organization Unknown Address Unknown Phone Unavailable Allergies Active Description Code Type Severity Reaction Onset Reported/Identified Relationship to Patient Clinical Status Yes No Known Drug Allergies [id number] Drug Allergy Unknown N/A 07/12/2019 Yes amoxicillin [id number] Drug Aller gy Unknown N/A 09/19/2019 Yes cefaclor [id number] Drug Allergy Unknown N/A 09/19/2019 Medications There [...] CANALES MD Ot Y92.[address] IN HALFWAY PLACE 05/11/2019 BUDDY CANALES MD Ot Y93.39 ACTIVITY, OTH INVOLVING CLIMBING, RAPPEL 05/15/2019 BUDDY CANALES MD Ot M79.675 PAIN IN LEFT TOE(S) 05/15/2019 BUDDY CANALES MD Ot S93.522A SPRAIN OF METATARSOPHALANGEAL JOINT OF L 05/15/2019 BUDDY CANALES MD Ot W17.89XA OTHER FALL FROM ONE LEVEL TO ANOTHER, IN 05/15/2019 BUDDY CANALES MD Ot Y92.[address] IN HALFWAY PLACE 05/15/2019 BUDDY CANALES MD Ot Y93.39 [...] Ot O99.3 32 SMOKING (TOBACCO) COMPLICATING 09/19/2019 KRISTEN GODOY MD Ot R10.2 PELVIC AND [...] NRG STATEMENT OF ADEQUACY: NRG INTERPRETATION/RESULT: NRG 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 Type Provider Facility Loc./Unit Complaint [id number] 11/07/2019 15:30:00 11/07/2019 23:59: 59 [facility] Outpatient [facility] [id number] 10/26/2019 10:30:00 Document Registration [id number] 06/29/2019 14:15:00 Document Registration [id number] 11/04/2019 12:19:00 15:29:00 DIS Emergency ASHLEY RESTREPO DO [facility] ER FS CRAMPING SPOTTING 23 WK S PREG [id number] 09/19/2019 12:47:00 020 13:32:00 DIS Emergency KRISTEN GODOY MD [facility] ER FS ABD PAIN [id number] 07/12/2019 16:09:00 17:29:00 DIS Emergency GERMAN CAPUTO MD [facility] ER FS 7 WEEKS PREG UNABLE TO HAVE BM [id number] 06/27/2019 19:05:00 10/29/2 019 20:21:00 DIS Emergency NED LYLE DO [facility] ER FS LOW ABD CRAMPING [id number] 05/11/2019 10:20:00 019 11:31:00 DIS Emergency PARKER HILLIARD, BUDDY Ward [facility] ER FS LT BIG TOE INJ
== END 2019-11-13 13:29 | disposition left against medical advice (07) ==
LOC: EDUNIT# 13:15 → ER FS 13:17
DX: R51 Headache (principal); R05 Cough

== ENCOUNTER 2020-12-04 11:08 | Emergency (ER) | payer MEDICAID ==
[~2020-12-04] VITALS: Ht 154 cm; Wt 68.0 kg
[2020-12-04 11:13] VITALS: BP 135/74
[2020-12-04 11:44] LABS: COLOR,URINE YELLOW
[2020-12-04 11:45] LABS: BILIRUBIN,URINE NEGATIVE (NEGATIVE); CLARITY,URINE SL CLOUDY; GLUCOSE, URINE (UA) NEGATIVE (NEGATIVE); KETONES,URINE NEGATIVE (NEGATIVE); NITRITE,URINE NEGATIVE (NEGATIVE); PROTEIN,URINE NEGATIVE (NEGATIVE)
[2020-12-04 11:46] LABS: AMPHETAMINE SCREEN, URINE NEGATIVE (NEGATIVE); BACTERIA,URINE LARGE /HPF; BARBITURATE SCREEN URINE NEGATIVE (NEGATIVE); BENZODIAZEPINES SCREEN URINE NEGATIVE (NEGATIVE); CANNABINOID SCREEN, URINE NEGATIVE (NEGATIVE); COCAINE SCREEN URINE NEGATIVE (NEGATIVE); LEUKOCYTE ESTERASE ,URINE NEGATIVE (NEGATIVE); METHADONE STAT NEGATIVE (NEGATIVE); METHAMPHETAMINE SCREEN URINE S NEGATIVE (NEGATIVE); OPIATE SCREEN URINE NEGATIVE (NEGATIVE); OXYCODONE STAT NEGATIVE (NEGATIVE); PROPOXYPHENE STAT NEGATIVE (NEGATIVE); RBC,URINE 0-2 /HPF; TRICYCLIC ANTIDEPRESSANTS SCRE NEGATIVE (NEGATIVE)
--- NOTE | 2020-12-04 11:49 | ED Back Pain ---
General Chief Complaint: Back Problems Stated Complaint: LWR BACK PAIN Nursing Triage Note: LOWER BACK PAIN X A WEEK AND HALF. PT REPORTS A POSITIVE TEST LAST PM. LMP LAST MONTH UNKNOWN EXACT DATE. Nursing Sepsis Screen: No Definite Risk Source of Information: Patient History of Present Illness Date Seen by Provider: Dec 04, 2020 Time Seen by Provider: 11:11 Initial Comments 30-year-old female presenting with complaints of approximately 10 to 12 days of low back pain radiating into her legs. This seems to be worse in her left leg. She denies any direct trauma to her back. She does have a toddler that she has been lifting. She denies any pain with urination or frequency of urination. She was due for her menstrual cycle and it was a day late so she did a home test last night and it was positive. She denies any vaginal bleeding or discharge currently. She has not had pain in her back going into her legs like this before. She did take a dose of ibuprofen when the pain first started 10 to 12 days ago but felt that it was not helping so she did not continue it. With the pain continuing and she felt like it was getting worse she came to the emergency department as she has no primary care provider. She denies any abdominal pain. She denies having any pain like this with her prior . Location: Lumbar Spine, Paraspinous Muscles Timing/Duration: Getting Worse Severity: Severe Pain/Injury Location: Back (low back) Radiation: Other (into both legs, left worse than right) Method of Injury: Unknown (no specific trauma or injury) Modifying Factors: Worse With Movement Associated Symptoms: muscle spasms; No fever, No weakness, No numbness in legs/feet, No tingling in legs/feet, No sensory/motor loss; lower back pain; No loss of bladder control, No loss of bowel control Allergies and Home Medications Allergies Coded Allergies: amoxicillin (Verified Allergy, Unknown, 09/19/19) cefaclor (Verified Allergy, Unknown, 09/19/19) Home Medications Cyclobenzaprine HCl 10 Mg Tablet, 10 MG PO Q8H PRN for SPASMS Prescribed by: KRISTEN GODOY on 12/04/20 1152 Hydrocodone/Acetaminophen 1 Each Tablet, 1 TAB PO Q6H PRN for PAIN-SEVERE (8-10) Prescribed by: KRISTEN GODOY on 12/04/20 1152 Lactulose 10 Gm Packet, 10 GM PO DAILY Prescribed by: GERMAN CAPUTO on 07/12/191712 Methylprednisolone 4 Mg Tab.ds.pk, 4 MG PO UD PER DOSE PACK INSTRUCTIONS Prescribed by: KRISTEN GODOY on 12/04/20 115 Nitrofurantoin Monohyd/M-Cryst 100 Mg Capsule, 1 TAB PO BID Prescribed by: DARIELA MARINO on 06/27/192012 Polyethylene Glycol 3350 17 Gm Powd.pack, 17 GM PO BID Prescribed by: GERMAN CAPUTO on 07/12/191712 Patient Home Medication List Home Medication List Reviewed: Yes Review of Systems Constitutional: No chills, No fever EENTM: no symptoms reported Respiratory: no symptoms reported Cardiovascular: no symptoms reported Gastrointestinal: no symptoms reported Genitourinary: no symptoms reported : Yes LMP: Nov 01, 2020 Musculoskeletal: see HPI Skin: no symptoms reported Psychiatric/Neurological: Denies Numbness, Denies Paresthesia Past Fxbuyoh-Kjfydg-Txjghq Hx Past Med/Social Hx: Reviewed Nursing Past Med/Soc Hx Patient Social History Alcohol Use: Denies Use Smoking Status: Never a Smoker Type Used: Cigarettes 2nd Hand Smoke Exposure: No Recent Infectious Disease Expo: No Recent Hopitalizations: No Seasonal Allergies Seasonal Allergies: No Past Medical History Surgeries: Yes (Cleft Palate repair, lumpectomy left breast, tympanostomy) Section, Ear Surgery Respiratory: No Cardiac: No Neurological: No Genitourinary: No Gastrointestinal: No Musculoskeletal: No Endocrine: No HEENT: No Cancer: No Psychosocial: No Integumentary: No Blood Disorders: No Physical Exam Vital Signs Vital Signs - First Documented 12/04/20 11:13 Temp 36.8 Pulse 95 Resp 18 B/P (MAP) 135/74 (94) Pulse Ox 96 O2 Delivery Room Air Capillary Refill : Less Than 3 Seconds Height, Weight, BMI Height: '" Weight: lbs. oz. kg; 28.00 BMI Method: General Appearance: WD/WN, Mild Distress Neck: Full Range of Motion, Normal Inspection, Non Tender, Supple Cardiovascular: Regular Rate, Rhythm, Normal Peripheral Pulses Respiratory: Chest Non Tender, Lungs Clear, Normal Breath Sounds, No Accessory Muscle Use, No Respiratory Distress Gastrointestinal: Normal Bowel Sounds, No Pulsatile Mass, Non Tender, Soft Back: CVA Tenderness (L), CVA Tenderness (R), Muscle Spasm, Vertebral Te nderness (lumbar) Extremity: Normal Capillary Refill, No Pedal Edema Neurologic/Psychiatric: Alert, Oriented x3, No Motor/Sensory Deficits, word processing specialist II- XII Norm as Tested, Other (Straight leg raise pain on left at 45 degrees and not improved by flexion of knee. no change in back pain with SLR of right leg) Skin: Normal Color, Warm/Dry Progress/Results/Core Measures Results/Orders Lab Results Laboratory Tests Test 12/04/20 11:17 Range/Units Urine Color YELLOW Urine Clarity SL CLOUDY Urine pH 6.0 5-9 Urine Specific [place] 1.025 H 1.016-1.022 Urine Protein NEGATIVE NEGATIVE Urine Glucose (UA) NEGATIVE NEGATIVE Urine Ketones NEGATIVE NEGATIVE Urine Nitrite NEGATIVE NEGATIVE Urine Bilirubin NEGATIVE NEGATIVE Urine Urobilinogen 0.2 < = 1.0 MG/DL Urine Leukocyte Esterase NEGATIVE NEGATIVE Urine RBC (Auto) TRACE H NEGATIVE Urine RBC 0-2 /HPF Urine WBC 2-5 /HPF Urine Squamous Epithelial Cells 10-25 H /HPF Urine Crystals NONE /LPF Urine Bacteria LARGE H /HPF Urine Casts NONE /LPF Urine Mucus MODERATE H /LPF Urine Culture Indicated NO Urine Opiates Screen NEGATIVE NEGATIVE Urine Oxycodone Screen NEGATIVE NEGATIVE Urine Methadone Screen NEGATIVE NEGATIVE Urine Propoxyphene Screen NEGATIVE NEGATIVE Urine Barbiturates Screen NEGATIVE NEGATIVE Ur Tricyclic Antidepressants Screen NEGATIVE NEGATIVE Urine Phencyclidine Screen NEGATIVE NEGATIVE Urine Amphetamines Screen NEGATIVE NEGATIVE Urine Methamphetamines Screen NEGATIVE NEGATIVE Urine Benzodiazepines Screen NEGATIVE NEGATIVE Urine Cocaine Screen NEGATIVE NEGATIVE Urine Cannabinoids Screen NEGATIVE NEGATIVE My Orders Orders - KRISTEN GODOY MD Ua Culture If Indicated (12/04/20 11:11) Drug Screen Stat (Urine) (12/04/20 11:11) Urine Bedside (12/04/20 11:11) Vital Signs/I&O 12/04/20 11:13 Temp 36.8 Pulse 95 Resp 18 B/P (MAP) 135/74 (94) Pulse Ox 96 O2 Delivery Room Air Blood Pressure Mean: 94 Progress Progress Note : Progress Note Bedside test positive, UA negative for UTI, UDS negative for drugs in her system With and having pain consistent with muscle spasm/strain in lumbar area of back and sciatica will treat for that and counseled on follow up and return precautions. If not improving she may need MRI through OB or PCP. Departure Impression Primary Impression: Acute lumbar myofascial strain Qualified Codes: S39.012A - Strain of muscle, fascia and tendon of lower back, initial encounter Additional Impressions: Sciatica Qualified Codes: M54.31 - Sciatica, right side; M54.32 - Sciatica, left side Incidental confirmed Disposition: HOME, SELF-CARE Condition: Stable Departure-Patient Inst. Decision time for Depature: 11:49 Referrals: NO,LOCAL PHYSICIAN (PCP) Primary Care Physician [facility] [place] Patient Instructions: Muscle Strain ED, Low Back Pain ED, Sciatica (DC) Add. Discharge Instructions: Try alternating ice and heat to your back to help with muscle inflammation and pain. Take the muscle relaxer, Acetaminophen, steroid to help with your symptoms. If not improved or having severe pain then try the Hydrocodone with Acetaminophen. Avoid taking more than 3,000 mg of Acetaminophen in a 24 hour period. If you are not having improvement in your symptoms or start having loss of control of your bowels or bladder then you will need to have an MRI to look at your spine and low back. You can call [phone] to see about establishing care with a provider through [facility] ([facility]) All discharge instructions reviewed with patient and/or family. Voiced un derstanding. Scripts Hydrocodone/Acetaminophen (Hydrocodone-Acetamin 5-325 mg) 1 Each Tablet 1 TAB PO Q6H PRN for PAIN-SEVERE (8-10) for 5 Days, #20 TAB 0 Refills Prov: KRISTEN GODOY MD 12/04/20 Cyclobenzaprine HCl (Cyclobenzaprine HCl) 10 Mg Tablet 10 MG PO Q8H PRN for SPASMS for 5 Days, #15 TAB 0 Refills Prov: KRISTEN GODOY MD 12/04/20 Methylprednisolone (Methylprednisolone Dose Pack) 4 Mg Tab.ds.pk 4 MG PO UD for Back Pain for 6 Days, #21 PKG 0 Refills PER DOSE PACK INSTRUCTIONS Prov: KRISTEN GODOY MD 12/04/20 Images Torso/Trunk 1 - Muscle Spams, Tenderness (tenderness to palpation from CVA bilaterally with muscle spasms of paraspinal muscles along lumbar spine. Mild SI joint pain to palpation bilaterally) KRISTEN GODOY MD Dec 04, 2020 11:49
[2020-12-04] MEDS ORDERED: ACHD5005 PO (11:52)
[2020-12-04] MEDS ORDERED: CYCL10TA9 PO (11:52)
[2020-12-04] MEDS ORDERED: METH4TAB10 PO (11:52)
== END 2020-12-04 11:55 | disposition home or self-care (01) ==
LOC: EDUNIT# 11:08 → ER FS 11:10
DX: S39.012A Strain of muscle, fascia and tendon of lower back, initial encounter (principal); M54.32 Sciatica, left side; I10 Essential (primary) hypertension; Z33.1 Pregnant state, incidental; Z88.1 Allergy status to other antibiotic agents; Z79.52 Long term (current) use of systemic steroids; X50.0XXA Overexertion from strenuous movement or load, initial encounter
CPT/HCPCS: 80306; 81000; 84703; 99282

== ENCOUNTER 2021-05-15 10:51 | Emergency (ER) | payer MEDICAID ==
[~2021-05-15] VITALS: Ht 157 cm; Wt 83.0 kg
[~2021-05-15 10:51] MED LIST changes: +ACHD5005 PO; +CYCL10TA9 PO; +METH4TAB10 PO
--- OUTSIDE RECORDS SUMMARY | 2021-05-15 10:56 | XMS REPORT | Clinical Summary ---
Author Author [facility] Organization [facility] Address Unknown Phone Unavailable Care Team Providers Care Slate Trimmer Name Role Phone Anthony Cuevas APRN-CLINICAL ADMISSIONS MANAGER Unavailable [phone] Angelic Palmer RN Unavailable Unavailable Nevaeh Mack RN Unavailable Unavailable Teagan Ross RN Unavailable Unavailable Vashti Gray MD Unavailable Jyoti Vogt MD Unavailable Marya Salinas MD Unavailable No Pcp, Na PCP Unavailable Source Comments Some departments are not documenting in the electronic medical record. If you d o not see the information that you expected, contact Release of Information in [facility] Information Management department at [phone] for further assistan ce in locating additional records.[facility] Allergies Comments Active Allergy Reactions Severity Noted Date Amoxicillin RASH 06/15/2010 Cefaclor RASH 06/15/2010 Medications End Date Status Medication Sig Dispensed Refills Start Date Active metroNIDAZOLE (FLAGYL) Take 1 Tab by 14 Tab 0 0 500 mg tablet mouth twice 5 daily. Active naproxen (NAPROSYN) 500 Take 1 Tab by 30 Tab 0 201 mg tablet mouth twice 6 daily with meals. Take with food. Active cyclobenzaprine Take 1 Tab by 30 Tab 0 06/24/20 1 (FLEXERIL) 10 mg tablet mouth three 6 times daily as needed for Muscle Cramps. Active naproxen (NAPROSYN) 500 Take 1 Tab by 30 Tab 0 201 mg tablet mouth twice 6 daily with meals. Take with food. Active Problems Not on file Surgical History Surgery Date Site/Laterality Comments BACK SURGERY HX MYRINGOTOMY Social History Date Tobacco Use Types Packs/Day Years Used Current Every Day Smoker Cigarettes 1 Comments Alcohol Use Standard Drinks/Week 1-2x per month No 0 (1 standard drink = 0.6 o z pure alcohol) Alcohol Habits Answer Date Recorded How often do you have a drink containing alcohol? No t asked How many drinks containing alcohol do you have on No t asked a typical day when you are drinking? How often do you have six or more drinks on one Not asked occasion? Comment: 1-2x per month 07/28/2016 Sex Assigned at Date Recorded Not on file Last Filed Vital Signs Reading Time Taken Comments Vital Sign 123/58 07/28/2016 6:35 PM APPLICATIONS INTERN Blood Pressure 80 06/24/2016 9:21 PM CDT Pulse 36.6 C (97.9 F) 07/28/2016 1:22 PM APPLICATIONS INTERN Temperature - - Respiratory Rate 100% 07/28/2016 6:35 PM APPLICATIONS INTERN Oxygen Saturation - - Inhaled Oxygen Concentration 69.8 kg (153 lb 14.1 oz) 07/28/2016 1:22 PM APPLICATIONS INTERN Weight - - Height - - Body Mass Index Plan of Treatment Health Maintenance Due Date Last Done Comments HIV SCREENING 2006 DTAP/TDAP VACCINES (1 - 2009 Tdap) HEPATITIS C SCREENING 2009 PHYSICAL (COMPREHENSIVE) 2009 EXAM CERVICAL CANCER SCREENING 01/21/2012 INFLUENZA VACCINE 05/30/2021 Results Not on filefrom Last 3 Months Advance Directives Patient Lpta Explanation Type Date Recorded Advance 03/26/2015 9:44 PM Directive/DPOA
[2021-05-15] MEDS ORDERED: METOCLOPRAMIDE INJ 10 MG/2 ML (REGLAN) IV ONE (11:15)
[2021-05-15] MEDS ORDERED: NS IV 1000 ML 1,000 ML IV SCH (11:15)
--- NOTE | 2021-05-15 11:18 | ED Headache ---
General Chief Complaint: Head/Cervical Problems Stated Complaint: HEADACHE History of Present Illness Date Seen by Provider: May 15, 2021 Time Seen by Provider: 11:00 Initial Comments 31-year-old female at 27 weeks gestation presents with headache which began last night. some mild light sensitivity without nausea vomiting. Took Tylenol without any relief. Previous with complication of preeclampsia. OB is Dr Todd Allergies and Home Medications Allergies Coded Allergies: amoxicillin (Verified Allergy, Unknown, 09/19/19) cefaclor (Verified Allergy, Unknown, 09/19/19) Patient Home Medication List Home Medication List Reviewed: Yes Cyclobenzaprine HCl (Cyclobenzaprine HCl) 10 Mg Tablet, 10 MG PO Q8H PRN for SPASMS Prescribed by: KRISTEN GODOY on 12/04/20 115 Hydrocodone/Acetaminophen (Hydrocodone-Acetamin 5-325 mg) 1 Each Tablet, 1 TAB PO Q6H PRN for PAIN-SEVERE (8-10) Prescribed by: KRISTEN ALANISRT on 12/04/20 115 Lactulose (Lactulose) 10 Gm Packet, 10 GM PO DAILY Prescribed by: GERMAN CAPUTO on 07/12/191712 Methylprednisolone (Methylprednisolone Dose Pack) 4 Mg Tab.ds.pk, 4 MG PO UD Prescribed by: KRISTEN GODOY on 12/04/20 115 Nitrofurantoin Monohyd/M-Cryst (Macrobid 100 mg Capsule) 100 Mg Capsule, 1 TAB PO BID Prescribed by: DARIELA MARINO on 06/27/192012 Polyethylene Glycol 3350 (Miralax) 17 Gm Powd.pack, 17 GM PO BID Prescribed by: GERMAN CAPUTO on 07/12/191712 Review of Systems Review of Systems Constitutional: No fever; malaise; No weakness Eyes: Photophobia (mild) Ears, Nose, Mouth, Throat: denies ear pain, denies nose pain, denies epistaxis, denies mouth swelling, denies throat pain Respiratory: No cough, No short of breath Cardiovascular: No chest pain, No edema, No palpitations Gastrointestinal: No abdominal pain, No loss of appetite, No nausea, No vomiting Musculoskeletal: No back pain, No joint pain, No neck pain Psychiatric/Neurological: Headache; Denies Numbness, Denies Paresthesia, Denies Seizure, Denies Weakness Past Ivhbtgy-Bussom-Qtifko Hx Patient Social History Tobacco Use?: Yes Tobacco type used: Cigarettes Smoking Status: Light Tobacco Smoker Substance use?: No Alcohol Use?: No Pt feels they are or have been: No Immunizations Up To Date First/Initial COVID19 Vaccinat: NA Seasonal Allergies Seasonal Allergies: No Past Medical History Surgeries: Yes (Cleft Palate repair, lumpectomy left breast, tympanostomy) Section, Ear Surgery Respiratory: No Cardiac: No Neurological: No Genitourinary: No Gastrointestinal: No Musculoskeletal: No Endocrine: No HEENT: No Cancer: No Psychosocial: No Integumentary: No Blood Disorders: No Physical Exam Vital Signs Vital Signs - First Documented 05/15/21 10:52 Temp 36.5 Pulse 86 Resp 14 B/P (MAP) 121/76 (91) Pulse Ox 98 O2 Delivery Room Air Capillary Refill : Height, Weight, BMI Height: '" Weight: lbs. oz. kg; 28.00 BMI Method: General Appearance: WD/WN, no apparent distress HEENT: PERRL/EOMI, normal ENT inspection, pharynx normal Neck: non-tender, supple, normal inspection Cardiovascular: regular rate, rhythm, no edema Respiratory: chest non-tender, lungs clear, normal breath sounds Gastrointestinal: non tender, soft, other (size c/w/d) Crainal Nerves: normal hearing, normal speech, PERRL Coordination/Gait: normal finger to nose, normal gait Progress/Results/Core Measures Results/Orders Lab Results Laboratory Tests Test 05/15/21 11:05 05/15/21 11:10 Range/Units Urine Color YELLOW Urine Clarity SLT CLOUDY Urine pH 6.5 5-9 Urine Specific [place] 1.020 1.016-1.022 Urine Protein NEGATIVE NEGATIVE Urine Glucose (UA) NEGATIVE NEGATIVE Urine Ketones NEGATIVE NEGATIVE Urine Nitrite NEGATIVE NEGATIVE Urine Bilirubin NEGATIVE NEGATIVE Urine Urobilinogen 0.2 < = 1.0 MG/DL Urine Leukocyte Esterase NEGATIVE NEGATIVE Urine RBC (Auto) TRACE H NEGATIVE Urine RBC 0-2 /HPF Urine WBC 0-2 /HPF Urine Squamous Epithelial Cells 5-10 /HPF Urine Crystals NONE /LPF Urine Bacteria TRACE /HPF Urine Casts NONE /LPF Urine Mucus SMALL H /LPF Urine Yeast FEW H /HPF Urine Culture Indicated YES White Blood Count 14.3 H 4.3-11.0 10^3/uL Red Blood Count 3.70 L 3.80-5.11 10^6/uL Hemoglobin 11.2 L 11.5-16.0 g/dL Hematocrit 33 L 35-52 % Mean Corpuscular Volume 89 80-99 fL Mean Corpuscular Hemoglobin 30 25-34 pg Mean Corpuscular Hemoglobin Concent 34 32-36 g/dL Red Cell Distribution Width 13.7 10.0-14.5 % Platelet Count 417 H 130-400 10^3/uL Mean Platelet Volume 8.8 L 9.0-12.2 fL Immature Granulocyte % (Auto) 0 % Neutrophils (%) (Auto) 80 H 42-75 % Lymphocytes (%) (Auto) 14 12-44 % Monocytes (%) (Auto) 5 0-12 % Eosinophils (%) (Auto) 1 0-10 % Basophils (%) (Auto) 0 0-10 % Neutrophils # (Auto) 11.4 H 1.8-7.8 X 10^3 Lymphocytes # (Auto) 2.0 1.0-4.0 X 10^3 Monocytes # (Auto) 0.7 0.0-1.0 X 10^3 Eosinophils # (Auto) 0.1 0.0-0.3 10^3/uL Basophils # (Auto) 0.0 0.0-0.1 10^3/uL Immature Granulocyte # (Auto) 0.1 0.0-0.1 10^3/uL Neutrophils % (Manual) 85 % Lymphocytes % (Manual) 13 % Monocytes % (Manual) 1 % Eosinophils % (Manual) 0 % Basophils % (Manual) 0 % Band Neutrophils 1 % Sodium Level 136 135-145 MMOL/L Potassium Level 3.9 3.6-5.0 MMOL/L Chloride Level 103 98-107 MMOL/L Carbon Dioxide Level 24 21-32 MMOL/L Anion Gap 9 5-14 MMOL/L Blood Urea Nitrogen 7 7-18 MG/DL Creatinine 0.62 0.60-1.30 MG/DL Estimat Glomerular Filtration Rate 113 BUN/Creatinine Ratio 11 Glucose Level 98 70-105 MG/DL Calcium Level 9.3 8.5-10.1 MG/DL Corrected Calcium 9.5 8.5-10.1 MG/DL Total Bilirubin 0.2 0.1-1.0 MG/DL Aspartate Amino Transf (AST/SGOT) 11 5-34 U/L Alanine Aminotransferase (ALT/SGPT) 7 0-55 U/L Alkaline Phosphatase 82 40-136 U/L Total Protein 6.6 6.4-8.2 GM/DL Albumin 3.8 3.2-4.5 GM/DL My Orders Orders - FAM LILLY DO Ed Iv/Invasive Line Start (05/15/21 11:03) Cbc With Automated Diff (05/15/21 11:03) Comprehensive Metabolic Panel (05/15/21 11:03) Urinalysis (05/15/21 11:03) Ns Iv 1000 Ml (Sodium Chloride 0.9%) (05/15/21 11:15) Metoclopramide Injection (Reglan Injecti (05/15/21 11:15) Urine Culture (05/15/21 11:05) Manual Differential (05/15/21 11:10) Medications Given in ED Current Medications Medications Dose Ordered Sig/[place] Route Start Time Stop Time Status Last Admin Dose Admin Metoclopramide HCl 5 mg ONCE ONCE IV 05/15/21 11:15 05/15/21 11:16 DC 05/15/21 11:20 5 MG Vital Signs/I&O 05/15/21 05/15/21 10:52 12:22 Temp 36.5 36.5 Pulse 86 86 Resp 14 14 B/P (MAP) 121/76 (91) 121/76 Pulse Ox 98 98 O2 Delivery Room Air Room Air Progress Progress Note : Progress Note Headache significantly improved with normal saline and 5 mg of Reglan IV. Review of labs without any evidence of preeclampsia. Departure Impression Primary Impression: Headache Qualified Codes: R51.9 - Headache, unspecified Disposition: 01 HOME, SELF-CARE Condition: Improved Departure-Patient Inst. Decision time for Depature: 12:00 Referrals: NO,LOCAL PHYSICIAN (PCP/Family) Primary Care Physician Patient Instructions: Headache, Adult (DC) Add. Discharge Instructions: Call Dr Todd and let him know you were seen in the ER and treated for a headache All discharge instructions reviewed with patient and/or family. Voiced understanding. FAM LILLY DO May 15, 2021 11:18
[2021-05-15 11:19] LABS: BACTERIA,URINE TRACE /HPF; BILIRUBIN,URINE NEGATIVE (NEGATIVE); CLARITY,URINE SLT CLOUDY; COLOR,URINE YELLOW; GLUCOSE, URINE (UA) NEGATIVE (NEGATIVE); KETONES,URINE NEGATIVE (NEGATIVE); LEUKOCYTE ESTERASE ,URINE NEGATIVE (NEGATIVE); NITRITE,URINE NEGATIVE (NEGATIVE); PH,URINE 6.5 (5-9); PROTEIN,URINE NEGATIVE (NEGATIVE); RBC,URINE 0-2 /HPF; WBC,URINE 0-2 /HPF
[2021-05-15 11:20] LABS: YEAST,URINE FEW /HPF
[2021-05-15 11:42] LABS: HEMATOCRIT 33 % (35-52); HEMOGLOBIN 11.2 g/dL (11.5-16.0); MEAN CORPUSCULAR HEMOGLOBIN 30 pg (25-34); WHITE BLOOD COUNT 14.3 10^3/uL (4.3-11.0)
[2021-05-15 11:43] LABS: BASOPHILS % (AUTO) 0 % (0-10); EOSINOPHILS # (AUTO) 0.1 10^3/uL (0.0-0.3); EOSINOPHILS % (AUTO) 1 % (0-10); LYMPHOCYTES % (AUTO) 14 % (12-44); MEAN CORPUSCULAR HGB CONC 34 g/dL (32-36); MEAN CORPUSCULAR VOLUME 89 fL (80-99); MEAN PLATELET VOLUME 8.8 fL (9.0-12.2); MONOCYTES # (AUTO) 0.7 X 10^3 (0.0-1.0); MONOCYTES % (AUTO) 5 % (0-12); NEUTROPHILS # (AUTO) 11.4 X 10^3 (1.8-7.8); NEUTROPHILS % (AUTO) 80 % (42-75); PLATELET COUNT 417 10^3/uL (130-400)
[2021-05-15 11:47] LABS: BILIRUBIN,TOTAL 0.2 MG/DL (0.1-1.0); CALCIUM 9.3 MG/DL (8.5-10.1); CREATININE SERUM 0.62 MG/DL (0.60-1.30); POTASSIUM 3.9 MMOL/L (3.6-5.0); TOTAL PROTEIN 6.6 GM/DL (6.4-8.2)
[2021-05-15 11:48] LABS: ALBUMIN 3.8 GM/DL (3.2-4.5)
[2021-05-15 12:05] LABS: BAND NEUTROPHILS 1 %; BASOPHILS % (MANUAL) 0 %; EOSINOPHILS % (MANUAL) 0 %; LYMPHOCYTES % (MANUAL) 13 %; MONOCYTES % (MANUAL) 1 %; NEUTROPHILS % (MANUAL) 85 %
[2021-05-15 12:22] VITALS: BP 121/76
== END 2021-05-15 12:22 | disposition home or self-care (01) ==
LOC: EDUNIT# 10:51 → ER FS 10:52
DX: O26.892 Other specified pregnancy related conditions, second trimester (principal); R51.9 Headache, unspecified; F17.210 Nicotine dependence, cigarettes, uncomplicated; Z3A.27 27 weeks gestation of pregnancy
CPT/HCPCS: 36415; 80053; 81000; 85007; 85027; 87088

== ENCOUNTER → 2022-01-02 | Outpatient (CLI) | payer MEDICAID ==
[~2022-01-02] MED LIST changes: +CYCL10TA25 PO; -CYCL10TA9 PO
== END ==
LOC: LABNPT 16:09
PROVIDERS: ATTEND Registered Nurse Emergency
DX: Z30.9 Encounter for contraceptive management, unspecified (principal); N39.0 Urinary tract infection, site not specified
CPT/HCPCS: 87088